=== PATIENT | female | born 1985 | race American Indian/Alaskan Native ===

== ENCOUNTER 2016-08-24 12:36 | Emergency (ER) | payer SELFPAY ==
--- NOTE | 2016-08-24 13:59 | Emergency Department Report ---
Entered by THELMA ESCOBEDO, acting as scribe for MONE ESQUEDA NP. Chief Complaint: Abdominal Pain Stated Complaint: R SIDE PAIN/EMESIS/ POS PREG TEST Time Seen by Provider: 08/24/16 13:52 - HPI History of Present Illness: 31 y/o female c/o RLQ abdominal pain beginning 1 day ago, aggravated by laying on her side. denies vaginal bleeding. Patient states she is 7 weeks . PT states she terminated her last and she did not follow up with her "RH shot" - ROS Review of Systems: + RLQ abdominal pain + nausea +vomiting - Exam Vital Signs: Vital Signs 08/24/16 13:51 Temperature 98.5 F Pulse Rate 79 Respiratory 18 Rate Blood Pressure 118/62 O2 Sat by Pulse 99 Oximetry Physical Exam: GENERAL: The patient is a well-developed, well-nourished, in no apparent distress. Patient is alert and oriented x3. Abdomen: RLQ tenderness. abd soft MSE screening note: Focused history and physical exam performed. Due to findings the following was ordered: labs, us ED Disposition for MSE Condition: Stable This documentation as recorded by the scribe,THLEMA ESCOBEDO,accurately reflects the service I personally performed and the decisions made by me,MONE ESQUEDA, SURGICAL ENDOSCOPIST.
[2016-08-24 14:14] LABS: Basophils % (Auto) 0.4 % (0.0-1.8); Eosinophils % (Auto) 1.4 % (0.0-4.3); Hematocrit 34.8 % (30.3-42.9); Hemoglobin 11.8 gm/dl (10.1-14.3); Mean Corpuscular HGB Conc 34 % (30-34); Mean Corpuscular Hemoglobin 30 pg (28-32); Mean Corpuscular Volume 90 fl (79-97); Platelet Count 264 K/mm3 (140-440); Red Blood Count 3.89 M/mm3 (3.65-5.03); Red Cell Distribution Width 13.3 % (13.2-15.2)
[2016-08-24 14:27] LABS: Alanine Aminotransferase 12 units/L (7-56); Albumin 3.7 g/dL (3.9-5); Alkaline Phosphatase 70 units/L (35-129); Anion Gap 16 mmol/L; BUN/Creatinine Ratio 11.66; Blood Urea Nitrogen 7 mg/dL (7-17); Calcium 8.8 mg/dL (8.4-10.2); Carbon Dioxide 25 mmol/L (22-30); Chloride 98.6 mmol/L (98-107); Glucose 97 mg/dL (65-100); Potassium 3.9 mmol/L (3.6-5.0); Sodium 136 mmol/L (137-145); Total Protein 7.4 g/dL (6.3-8.2)
[2016-08-24 15:48] LABS: Bilirubin,Urine NEG (Negative); Blood,Urine NEG (Negative); Ketones,Urine NEG (Negative); Leukocyte Esterase,Urine NEG (Negative); Mucus,Urine FEW /HPF; Nitrite,Urine NEG (Negative); Protein,Urine <15 mg/dL mg/dL (Negative)
--- NOTE | 2016-08-24 15:49 | Ultrasound Report ---
ULTRASOUND OB LESS THAN 14 WEEKS - TRANSABDOMINAL AND TRANSVAGINAL INDICATION: Pain. Serum beta-hCG of 51,575 units. COMPARISON: None similar. FINDINGS: Transabdominal and transvaginal pelvic sonography in part limited due to patient's body habitus and overlying bowel gas in this patient with clinical age of 7 weeks and 2 days per outside ultrasound. An anteverted, gravid uterus measuring approximately 11.6 x 6.7 x 7.4 cm demonstrates a single, live intrauterine gestation with heart rate of 152 beats per minute. Mean crown-rump length of 1.18 cm corresponds to 7 weeks and 2 days. Yolk sac measures approximately 0.4 cm. Cervix closed. No significant pelvic free fluid. Both maternal ovaries identified, estimated at 2.6 x 1.6 x 1.6 cm on the right. Left ovary approximately 4.9 x 4 x 3.6 cm transabdominally with an approximately 3.2 cm cyst. CONCLUSION: 1. Single, live intrauterine gestation with an ultrasound estimated age of 7 weeks and 2 days and NABIL of 04/10/2017. 2. Few other findings, as above. Thank you for the opportunity to participate in this patient's care.
[2016-08-24 20:24] VITALS: BP 133/52
--- NOTE | 2016-08-24 20:24 | Emergency Department Report ---
HPI - General Chief Complaint: Abdominal Pain Time Seen by Provider: 08/24/16 13:52 - HPI HPI: Room 8 The patient is 31-year-old female presenting with a chief complaint of right flank pain. The patient states for approximately 1 week she has had intermittent pain in the right lower quadrant associated with nausea and vomiting. Patient denies dysuria or hematuria. Patient denies fever or diarrhea. Patient denies anorexia. The patient states she hasn't missed her normal cycle subsequently took a home test which was positive. The patient states she did have an ultrasound performed to assess the has not seen an RETOUCHING OPERATOR yet. The patient states she had a similar pain in March of this year which was attributed to a kidney stone. Location: [see above] Duration: Intermittent times one week Quality: Pain Severity: Moderate Modifying factors: [see above] Context: [see above] Mode of transportation: Unknown ED Past Medical Hx - Past Medical History Previous Medical History?: Yes Hx Psychiatric Treatment: Yes (BIPOLAR DEPRESSION) - Surgical History Past Surgical History?: Yes Additional Surgical History: CLEFT PALATE REPAIR, IUD removal - Family History Family history: no significant - Social History Smoking Status: Never Smoker Substance Use Type: Alcohol (occasional) - Medications Home Medications: Home Medications Medication Instructions Recorded Confirmed Last Taken Type Ibuprofen [Motrin] 800 mg PO Q8HR PRN #30 tablet 02/21/15 Unknown Rx Mirtazapine 15 mg PO QHS 02/21/15 02/21/15 Unknown History Sertraline [Zoloft] 50 mg PO QDAY 02/21/15 02/21/15 02/21/15 07:00 History Tetrahydrozoline HCl [Visine] 15 ml OP BID #1 drops 02/21/15 Unknown Rx risperiDONE [RisperiDONE] 3 mg PO QDAY 02/21/15 02/21/15 Unknown History Hydrocortisone [Anucort-HC SUPPOS] 25 mg RC BID #21 supp.rect 03/03/15 Unknown Rx Hyoscyamine Subl [Levsin Sl 0.125 0.125 mg SL Q4HR PRN #20 tab 03/03/15 Unknown Rx TAB] Loperamide [Imodium] 2 mg PO Q2HR #20 capsule 03/03/15 Unknown Rx Bismuth Subsalicylate 262 mg PO QID #1 bottle 01/16/16 Unknown Rx [Pepto-Bismol] Ciprofloxacin HCl [Ciprofloxacin 500 mg PO BID #14 tablet 01/16/16 Unknown Rx TAB] Ibuprofen [Motrin] 400 mg PO Q8H PRN #20 tablet 01/16/16 Unknown Rx Ondansetron [Zofran ODT TAB] 8 mg PO Q8HR #20 tab.rapdis 08/24/16 Unknown Rx ED Review of Systems ROS: Stated complaint: R SIDE PAIN/EMESIS/ POS PREG TEST Other details as noted in HPI Comment: All other systems reviewed and negative Constitutional: denies: chills, fever Eyes: denies: eye pain, eye discharge, vision change ENT: denies: ear pain, throat pain Respiratory: denies: cough, shortness of breath, wheezing Cardiovascular: denies: chest pain, palpitations Endocrine: no symptoms reported Gastrointestinal: abdominal pain, nausea, vomiting. denies: diarrhea Genitourinary: denies: urgency, dysuria, discharge Musculoskeletal: denies: back pain, joint swelling, arthralgia Skin: denies: rash, lesions Neurological: denies: headache, weakness, paresthesias Psychiatric: denies: anxiety, depression Hematological/Lymphatic: denies: easy bleeding, easy bruising Physical Exam - Physical Exam Vital Signs: Vital Signs 08/24/16 13:51 Temperature 98.5 F Pulse Rate 79 Respiratory 18 Rate Blood Pressure 118/62 O2 Sat by Pulse 99 Oximetry Physical Exam: GENERAL: The patient is well-developed well-nourished female lying on stretcher not appearing to be in acute distress. [] HEENT: Normocephalic. Atraumatic. Extraocular motions are intact. Patient has moist mucous membranes. NECK: Supple. Trachea midline CHEST/LUNGS: Clear to auscultation. There is no respiratory distress noted. HEART/CARDIOVASCULAR: Regular. There is no tachycardia. There is no gallop rub or murmur. ABDOMEN: Abdomen is soft, nontender to palpation in all quadrants. Patient allows deep palpation in the right lower quadrant without grimacing. There is no rebound or guarding. Negative psoas sign, negative obturator sign, negative heel percussion. Patient has normal bowel sounds. There is no abdominal distention. SKIN: There is no rash. There is no edema. There is no diaphoresis. NEURO: The patient is awake, alert, and oriented. The patient is cooperative. The patient has no focal neurologic deficits. The patient has normal speech MUSCULOSKELETAL: There is no CVA tenderness. There is no evidence of acute injury. ED Course Vital Signs 08/24/16 13:51 Temperature 98.5 F Pulse Rate 79 Respiratory 18 Rate Blood Pressure 118/62 O2 Sat by Pulse 99 Oximetry ED Medical Decision Making - Lab Data Result diagrams: 08/24/16 13:58 08/24/16 13:58 Laboratory Tests 08/24/16 08/24/16 08/24/16 13:58 13:58 13:58 WBC 10.0 RBC 3.89 Hgb 11.8 Hct 34.8 MCV 90 MCH 30 MCHC 34 RDW 13.3 Plt Count 264 Lymph % (Auto) 25.6 [place] % (Auto) 5.9 Eos % (Auto) 1.4 Baso % (Auto) 0.4 Lymph # 2.6 [place] # 0.6 Eos # 0.1 Baso # 0.0 Seg Neutrophils % 66.7 Seg Neutrophils # 6.7 Sodium 136 L Potassium 3.9 Chloride 98.6 Carbon Dioxide 25 Anion Gap 16 BUN 7 Creatinine 0.6 L Estimated GFR > 60 BUN/Creatinine Ratio 11.66 Glucose 97 Calcium 8.8 Total Bilirubin 0.30 AST 13 ALT 12 Alkaline Phosphatase 70 Total Protein 7.4 Albumin 3.7 L Albumin/Globulin Ratio 1.0 HCG, Quant 03916 H Urine Color Urine Turbidity Urine pH Ur Specific [place] Urine Protein Urine Glucose (UA) Urine Ketones Urine Blood Urine Nitrite Urine Bilirubin Urine Urobilinogen Ur Leukocyte Esterase Urine WBC (Auto) Urine RBC (Auto) U Epithel Cells (Auto) Urine Mucus Blood Type 08/24/16 08/24/16 13:58 14:19 WBC RBC Hgb Hct MCV MCH MCHC RDW Plt Count Lymph % (Auto) [place] % (Auto) Eos % (Auto) Baso % (Auto) Lymph # [place] # Eos # Baso # Seg Neutrophils % Seg Neutrophils # Sodium Potassium Chloride Carbon Dioxide Anion Gap BUN Creatinine Estimated GFR BUN/Creatinine Ratio Glucose Calcium Total Bilirubin AST ALT Alkaline Phosphatase Total Protein Albumin Albumin/Globulin Ratio HCG, Quant Urine Color Yellow Urine Turbidity Clear Urine pH 5.0 Ur Specific [place] 1.024 Urine Protein <15 mg/dl Urine Glucose (UA) Neg Urine Ketones Neg Urine Blood Neg Urine Nitrite Neg Urine Bilirubin Neg Urine Urobilinogen 4.0 Ur Leukocyte Esterase Neg Urine WBC (Auto) 1.0 Urine RBC (Auto) 4.0 U Epithel Cells (Auto) 6.0 Urine Mucus Few Blood Type O NEGATIVE - Radiology Data Radiology results: report reviewed (pelvic ultrasound, right renal ultrasound), image reviewed (pelvic ultrasound, right renal ultrasound) Pelvic ultrasound (read by radiologist)-single live intrauterine gestation with an ultrasound estimated age of 7 weeks and 2 days. heart rate 152 bpm. - Medical Decision Making Given the patient's benign abdominal exam, normal WBC with normal differential after 1 week of symptoms, lack of anorexia I do not feel the patient of acute appendicitis. - Differential Diagnosis ectopic , UTI, pyelonephritis, renal colic Critical care attestation.: If time is entered above; I have spent that time in minutes in the direct care of this critically ill patient, excluding procedure time. ED Disposition Clinical Impression: , Nausea & vomiting, Abdominal pain Disposition: - TO HOME OR SELFCARE Is pt being admited?: No Does the pt Need Aspirin: No Condition: Stable Instructions: Abdominal Pain (ED) Additional Instructions: Return to the emergency department immediately should you develop worsening symptoms, fever, inability to tolerate food or liquid or any other concerns. Prescriptions: Ondansetron [Zofran ODT TAB] 8 mg PO Q8HR #20 tab.rapdis Referrals: PRIMARY CAREMD [Primary Care Provider] - 3-5 Days JACQUELINE COTE MD [Staff Physician] - 3-5 Days (Dr. Cote is an RETOUCHING OPERATOR. Please follow up with her for further evaluation) Time of Disposition: 21:53
--- NOTE | 2016-08-24 21:26 | Ultrasound Report ---
FINAL REPORT PROCEDURE: Renal ultrasound. TECHNIQUE: Real-time sonography in multiple planes of the kidneys, ureters and urinary bladder was performed with image documentation. CPT 44552 HISTORY: Right flank pain, nausea and vomiting. COMPARISON: No prior studies are available for comparison. FINDINGS: The left kidney was not imaged. The right kidney appears normal in size and has normal echogenicity. There is no hydronephrosis. There are no renal masses. There are no renal calcifications. The bladder is grossly normal. There is a single image that includes a portion of the uterus. There appears to be an intrauterine gestational sac. IMPRESSION: Normal appearing right kidney. Probable intrauterine .
[2016-08-24] MEDS ORDERED: ZOFRAN ODT PO ONE (21:54)
[2016-08-24] MEDS ORDERED: TYLENOL PO ONE (21:54)
== END 2016-08-24 22:25 | disposition home or self-care (01) ==
LOC: ED 12:36
DX: O21.8 Other vomiting complicating pregnancy (principal); O26.891 Other specified pregnancy related conditions, first trimester; Z3A.08 8 weeks gestation of pregnancy; R10.31 Right lower quadrant pain; F32.9 Major depressive disorder, single episode, unspecified
CPT/HCPCS: 36415; 76775; 76801; 76817; 80053; 81001; 84702; 85025; 86900; 86901; Q0162

== ENCOUNTER 2017-12-07 09:58 | Emergency (ER) | payer SELFPAY ==
[2017-12-07 10:36] VITALS: BP 132/78
[2017-12-07] MEDS ORDERED: ZOFRAN ODT PO ONE (11:18)
[2017-12-07] MEDS ORDERED: BENTYL IM ONE (11:18)
--- NOTE | 2017-12-07 11:22 | Emergency Department Report ---
Vomiting/Diarrhea - HPI Chief Complaint: Abdominal Pain Stated Complaint: STOMACH PAIN/NAUSEA Time Seen by Provider: 12/07/17 11:13 Duration: 2 Days Severity: moderate Nausea/Vomiting Severity: Mild Diarrhea Severity: Moderate (patient states she has nausea but there's been no vomiting at this time) Pain Location: Generalized (crampy in nature 5 out of 10) Pain Severity: Mild Symptoms: Yes Watery Diarrhea, Yes Able to Tolerate Fluids, Yes Contacts w/ Similar Symptoms, Yes Recent URI Symptoms, No Bloody diarrhea, No Fever, No Recent Unusual Foods, No Recent Untreated Water, No Recent use of Antibiotics, No Family w/ Similar Symptoms, No Rash, No Hematuria ED Review of Systems ROS: Stated complaint: STOMACH PAIN/NAUSEA Other details as noted in HPI Comment: All other systems reviewed and negative ED Past Medical Hx - Past Medical History Previous Medical History?: Yes Hx Hypertension: No Hx Diabetes: No Hx Deep Vein Thrombosis: No Hx Renal Disease: No Hx Sickle Cell Disease: No Hx Seizures: No Hx Psychiatric Treatment: Yes (BIPOLAR DEPRESSION, anxiety) Hx Asthma: No Hx HIV: No Additional medical history: brionchitis - Surgical History Past Surgical History?: Yes Additional Surgical History: CLEFT PALATE REPAIR, IUD removal - Social History Smoking Status: Never Smoker Substance Use Type: None - Medications Home Medications: Home Medications Medication Instructions Recorded Confirmed Last Taken Type Ibuprofen [Motrin] 800 mg PO Q8HR PRN #30 tablet 02/21/15 Unknown Rx Mirtazapine 15 mg PO QHS 02/21/15 02/21/15 Unknown History Sertraline [Zoloft] 50 mg PO QDAY 02/21/15 02/21/15 02/21/15 07:00 History Tetrahydrozoline HCl [Visine] 15 ml OP BID #1 drops 02/21/15 Unknown Rx risperiDONE [RisperiDONE] 3 mg PO QDAY 02/21/15 02/21/15 Unknown History Hydrocortisone [Anucort-HC SUPPOS] 25 mg RC BID #21 supp.rect 03/03/15 Unknown Rx Hyoscyamine Subl [Levsin Sl 0.125 0.125 mg SL Q4HR PRN #20 tab 03/03/15 Unknown Rx TAB] Loperamide [Imodium] 2 mg PO Q2HR #20 capsule 03/03/15 Unknown Rx Bismuth Subsalicylate 262 mg PO QID #1 bottle 01/16/16 Unknown Rx [Pepto-Bismol] Ciprofloxacin HCl [Ciprofloxacin 500 mg PO BID #14 tablet 01/16/16 Unknown Rx TAB] Ibuprofen [Motrin] 400 mg PO Q8H PRN #20 tablet 01/16/16 Unknown Rx Ondansetron [Zofran ODT TAB] 8 mg PO Q8HR #20 tab.rapdis 08/24/16 Unknown Rx Dicyclomine [Bentyl] 10 mg PO QID #15 capsule 12/07/17 Unknown Rx Diphenoxylate/Atropine [Lomotil] 1 tab PO Q4H PRN #10 tablet 12/07/17 Unknown Rx Ondansetron [Zofran Odt] 4 mg PO Q8HR PRN #10 tab.rapdis 12/07/17 Unknown Rx traMADol [Ultram] 50 mg PO Q6HR PRN #10 tablet 12/07/17 Unknown Rx Vomiting Diarrhea Exam - Exam General: Vital signs noted. No distress. Alert and acting appropriately. HEENT: Yes Moist Mucous Membranes, No Pharyngeal Erythema, No Pharyngeal Exudates, No Rhinorrhea, No Conjuctival Injection, No Frontal Tenderness, No Maxillary Tenderness Neck: No Adenopathy, No Rigidity Lungs: Yes Clear Lung Sounds, Yes Good Air Exchange, No Wheezes, No Stridor, No Cough, No Nasal Flaring, No Retractions, No Use of Accessory Muscles Heart exam: Regular: Yes, Murmur: No, Tachycardia: No Abdomen: Tenderness: No, Peritoneal Signs: No, Distention: No, Hyperactive Bowel sounds: No Skin exam: Rash: No, Edema: No, Normal turgor: Yes Neurologic: Alert and oriented, no deficits. Musculoskeletal: Unremarkable. ED Course Vital Signs 12/07/17 10:33 Temperature 99.1 F Pulse Rate 96 H Respiratory 18 Rate Blood Pressure 132/78 O2 Sat by Pulse 100 Oximetry ED Medical Decision Making - Medical Decision Making Patient's vital signs are within normal limits. Patient's abdomen is nontender. Believe the patient most likely has a viral gastroenteritis and will be treated with meds for symptomatic relief Critical care attestation.: If time is entered above; I have spent that time in minutes in the direct care of this critically ill patient, excluding procedure time. ED Disposition Clinical Impression: Viral gastroenteritis Disposition: DC-01 TO HOME OR SELFCARE Is pt being admited?: No Does the pt Need Aspirin: No Condition: Stable Instructions: Gastroenteritis (ED) Referrals: [facility] [Outside] - 3-5 Days Time of Disposition: 11:22
== END 2017-12-07 11:52 | disposition home or self-care (01) ==
LOC: ED 09:58
DX: A08.4 Viral intestinal infection, unspecified (principal); F31.9 Bipolar disorder, unspecified; F41.9 Anxiety disorder, unspecified
CPT/HCPCS: 96372; 99282; J0500; Q0162

== ENCOUNTER 2021-08-17 12:19 | Emergency (ER) | payer SELFPAY ==
[2021-08-17 13:09] VITALS: BP 115/65
== END 2021-08-17 18:36 | disposition home or self-care (01) ==
LOC: ED 12:19
DX: J02.9 Acute pharyngitis, unspecified (principal); R11.10 Vomiting, unspecified; Z53.21 Procedure and treatment not carried out due to patient leaving prior to being seen by health care provider
CPT/HCPCS: 87430